=== PATIENT | male | born 1970 | race Caucasian/White ===

== ENCOUNTER 2017-02-01 14:38 | Inpatient (IN) | payer OTHER ==
--- NOTE | 2017-02-01 15:41 | EDM.PDOCBH ---
<Carroll Reed - Last Filed: 02/01/17 19:32> ED HPI GENERAL MEDICAL PROBLEM - General Chief Complaint: Behavioral/Psych Stated Complaint: [facility] Time Seen by Provider: 02/01/17 14:46 Source of Information: Reports: Patient, RN Notes Reviewed History Limitations: Reports: Other (The patient was initially hostile, but softened over time) - History of Present Illness INITIAL COMMENTS - FREE TEXT/NARRATIVE: Report from EMS is that a friend of the patient apparently called 911 because the patient has been expressing some sort of suicidal ideation. The police then called EMS. The patient acknowledges that he has been feeling depressed and suicidal for the past few days. He stated to me "I just figured I'd just shoot myself in the fucking head". He states that he DOES NOT have access to a firearm, but that if he did, he wouldn't be here. The patient denies prior suicide attempts or prior psychiatric hospitalizations, however, while he denies having any psychiatric diagnoses, he acknowledges that he is being treated for depression, anxiety, and PTSD by the [facility]. He acknowledges that he is generally noncompliant with all of his medications, and has not taken any of his medications at all for the past 2 weeks. He added that when he does not take his medications, things often start to go badly for him. He states that he has been drinking approximately 1 L of whiskey per day for the past 2 weeks, but expressly denies that he is drinking in order to try to kill himself. He states that he started drinking when he was 11 years old. He states that he has been to inpatient alcohol treatment 4 or 5 times, most recently April 2016 through August 2016 at the [facility]. He states that while there, he was also treated for PTSD. He states, however, that he does not go to any outpatient counseling, and never has. He states that he injected about 1/2 g heroin this past Wednesday night, 01/29/2017 , but states that this is only about the fourth time since 2001 that he has ever done heroin. He states that he smokes marijuana recreationally, most recently about 2 weeks ago. He states that his drug of choice is injecting methamphetamine, that he started injecting it in the 1980s, but that the last time he injected it was about 10 years ago. He states that he has prescriptions for Ativan and Xanax. - Related Data Allergies Allergy/AdvReac Type Severity Reaction Status Date / Time No Known Allergies Allergy Verified 02/01/17 14:54 Past Medical History HEENT History: Reports: Impaired Vision Other HEENT History: wears contacts. Cardiovascular History: Reports: High Cholesterol, Hypertension Gastrointestinal History: Reports: GERD Genitourinary History: Reports: Renal Calculus Neurological History: Reports: Head Trauma ([place] war) Psychiatric History: Reports: Addiction, Anxiety, Depression - Infectious Disease History Infectious Disease History: Reports: Chicken Pox - Past Surgical History HEENT Surgical History: Reports: Tonsillectomy GI Surgical History: Reports: Appendectomy Male Surgical History: Reports: Lithotripsy ([facility]), Ureteral Stent Social & Family History - Tobacco Use Smoking Status *Q: Never Smoker Second Hand Smoke Exposure: No - Caffeine Use Caffeine Use: Reports: Coffee - Alcohol Use Alcohol Use History: Yes Days Per Week of Alcohol Use: 7 Number of Drinks Per Day: 23 Total Drinks Per Week: 161 Total Drinks Per Week Comment: States started drinking at 11 years old Alcohol Use Frequency: Binges - Recreational Drug Use Recreational Drug Use: Yes Drug Use in Last 12 Months: Yes Recreational Drug Type: Reports: Heroin (rarely, but last use 01/29/17), Marijuana/Hashish (recreationally, last November 2016), Methamphetamine (last around 2006) - Living Situation & Occupation Living situation: Reports: , Alone (in a camper) Occupation: Unemployed ED ROS GENERAL - Review of Systems Review Of Systems: See Below Constitutional: Reports: No Symptoms HEENT: Reports: No Symptoms Respiratory: Reports: No Symptoms Cardiovascular: Reports: No Symptoms Endocrine: Reports: No Symptoms GI/Abdominal: Reports: No Symptoms : Reports: No Symptoms Musculoskeletal: Reports: No Symptoms Skin: Reports: No Symptoms Neurological: Reports: No Symptoms Psychiatric: Reports: Depression (as per the HPI), Suicidal Ideation (as per the HPI) Hematologic/Lymphatic: Reports: No Symptoms Immunologic: Reports: No Symptoms ED EXAM, BEHAVIORAL HEALTH - Physical Exam Exam: See Below Exam Limited By: Intoxication (Smells of alcohol, but is cooperative) General Appearance: Alert, WD/WN, No Apparent Distress Eye Exam: Bilateral Eye: Normal Inspection Ears: Normal External Exam, Hearing Grossly Normal Nose: Normal Inspection, No Blood Throat/Mouth: Normal Inspection, Normal Lips, Normal Voice, No Airway Compromise Head: Atraumatic, Normocephalic Neck: Normal Inspection, Full Range of Motion Respiratory/Chest: No Respiratory Distress, Lungs Clear, Normal Breath Sounds, No Accessory Muscle Use Cardiovascular: Normal Peripheral Pulses, Regular Rate, Rhythm, No Gallop, No JVD, No Murmur, No Rub GI/Abdominal: Normal Bowel Sounds, Soft, Non-Tender, No Organomegaly, No Distention, No Abnormal Bruit, No Mass (Male) Exam: Deferred Rectal (Males) Exam: Deferred Back Exam: Normal Inspection, Full Range of Motion, NT Extremities: Normal Inspection, Normal Range of Motion, No Pedal Edema, Normal Capillary Refill Neurological: No Motor/Sensory Deficits, Oriented x 3 Psychiatric: Other (Initially hostile, stating that he didn't know why he was here, and suspicious, asking why I was asking him questions. He would yell his answers as if to indicate that he was done answering questions, but would then answer the next question. He softened over time, when he saw that I was not a threat, and began answering questions more amicably. He was cooperative with his physical exam.) Skin Exam: Warm, Dry, Intact, Normal color, No rash EKG INTERPRETATION EKG Date: 02/01/17 Time: 15:51 Rhythm: NSR Rate (Beats/Min): 92 [place]: Normal P-Wave: Present QRS: Normal ST-T: Normal QT: Normal Comparison: NA - No Prior EKG COURSE, BEHAVIORAL HEALTH COMP - Course Vital Signs: Last Vital Signs Temp 36.7 C 02/03/17 12:00 Pulse 78 02/03/17 04:00 Resp 22 H 02/03/17 12:00 BP 150/91 H 02/03/17 12:47 Pulse Ox 94 L 02/03/17 12:00 Orders, Labs, Meds: Medication Orders Acetaminophen (Tylenol) 650 mg PO Q4H PRN PRN Reason: Pain (Mild 1-3)/fever Albuterol/Ipratropium (Duoneb 3.0-0.5 Mg/3 Ml) 3 ml NEB Q4H PRN PRN Reason: Shortness Of Breath/wheezing Chlordiazepoxide HCl (Librium) 50 mg PO BID JAMEL Last Admin: 02/03/17 08:52 Dose: 50 mg Admin: 02/02/17 20:29 Dose: 50 mg Admin: 02/02/17 17:17 Dose: 50 mg Clonidine HCl (Catapres) 0.2 mg PO Q8H JAMEL Docusate Sodium (Colace) 100 mg PO BID PRN PRN Reason: Constipation Enoxaparin Sodium (Lovenox) 40 mg SUBCUT DAILY [facility] Last Admin: 02/03/17 08:59 Dose: 40 mg Admin: 02/02/17 12:27 Dose: 40 mg Folic Acid (Folic Acid) 1 mg PO DAILY [facility] Stop: 02/05/17 09:01 Last Admin: 02/03/17 08:52 Dose: 1 mg Haloperidol Lactate (Haldol) 2 mg IM Q4H PRN PRN Reason: Agitation Hydralazine HCl (Apresoline) 20 mg IVPUSH Q6H PRN PRN Reason: Hypertension Last Admin: 02/03/17 12:30 Dose: 20 mg Magnesium Sulfate 2 gm/ Premix 50 mls @ 25 mls/hr IV ONETIME ONE Stop: 02/03/17 14:29 Last Admin: 02/03/17 12:54 Dose: 25 mls/hr Lorazepam (Ativan) 0 mg PO ASDIRECTED JAMEL PRN Reason: Protocol Last Admin: 02/03/17 11:52 Dose: 2 mg Admin: 02/03/17 08:53 Dose: 1 mg Admin: 02/02/17 14:28 Dose: 1 mg Lorazepam (Ativan) 0 mg IV ASDIRECTED JAMEL PRN Reason: Protocol Last Admin: 02/03/17 09:59 Dose: 2 mg Admin: 02/02/17 18:51 Dose: 1 mg Admin: 02/02/17 12:52 Dose: 1 mg Metoprolol Tartrate (Lopressor) 25 mg PO Q6H PRN PRN Reason: See Label Comment Miscellaneous Information (Remove Patch) 0 ea TRDERM DAILY [facility] Last Admin: 02/03/17 08:59 Dose: Nicotine (Habitrol) 21 mg TRDERM DAILY [facility] Last Admin: 02/03/17 08:53 Dose: Admin: 02/02/17 12:27 Dose: Not Given Ondansetron HCl (Zofran Odt) 4 mg PO Q6H PRN PRN Reason: nausea, able to take PO Last Admin: 02/02/17 15:17 Dose: 4 mg Ondansetron HCl (Zofran) 4 mg IV Q6H PRN PRN Reason: Nausea/Vomiting Last Admin: 02/03/17 11:51 Dose: 4 mg Polyethylene Glycol (Miralax) 17 gm PO DAILY PRN PRN Reason: Constipation Thiamine HCl (Vitamin B-1) 100 mg PO DAILY JAMEL Last Admin: 02/03/17 08:52 Dose: 100 mg Laboratory Tests 02/01/17 02/01/17 02/01/17 Range/Units 14:45 14:45 14:45 WBC 12.55 H (4.23-9.07) K/mm3 RBC 5.92 (4.63-6.08) M/mm3 Hgb 17.1 (13.7-17.5) gm/L Hct 50.4 (40.1-51.0) % MCV 85.1 (79.0-92.2) fl MCH 28.9 (25.7-32.2) pg MCHC 33.9 (32.2-35.5) g/dl RDW Std Deviation 42.7 (35.1-43.9) fL Plt Count 350 H (163-337) K/mm3 MPV 11.0 (9.4-12.3) fl Neutrophils % (Manual) 57 (40-60) % Band Neutrophils % 0 (0-10) % Lymphocytes % (Manual) 41 H (20-40) % Atypical Lymphs % 0 % Monocytes % (Manual) 2 (2-10) % Eosinophils % (Manual) 0 L (0.8-7.0) % Basophils % (Manual) 0 L (0.2-1.2) Platelet Estimate Adequate RBC Morph Comment Normal Sodium 141 (136-145) mEq/L Potassium 3.5 (3.5-5.1) mEq/L Chloride 103 (98-107) mEq/L Carbon Dioxide 22 (21-32) mEq/L Anion Gap 19.5 H (5-15) BUN 17 (7-18) mg/dL Creatinine 1.1 (0.7-1.3) mg/dL Est Cr Clr Drug Dosing 80.32 mL/min Estimated GFR (MDRD) > 60 (>60) mL/min BUN/Creatinine Ratio 15.5 (14-18) Glucose 131 H (74-106) mg/dL Calcium 8.7 (8.5-10.1) mg/dL Total Bilirubin 0.3 (0.2-1.0) mg/dL AST 39 H (15-37) U/L ALT 68 H (16-63) U/L Alkaline Phosphatase 88 (46-116) U/L Total Protein 8.1 (6.4-8.2) g/dl Albumin 3.9 (3.4-5.0) g/dl Globulin 4.2 gm/dL Albumin/Globulin Ratio 0.9 L (1-2) TSH 3rd Generation 1.646 (0.358-3.74) uIU/mL Salicylates 2.1 L (2.8-20) mg/dL Urine Opiates Screen (NEGATIVE) Ur Buprenorphine Scrn (NEGATIVE) Ur Oxycodone Screen (NEGATIVE) Urine Methadone Screen (NEGATIVE) Ur Propoxyphene Screen (NEGATIVE) Acetaminophen 0 L (10-30) ug/mL Ur Barbiturates Screen (NEGATIVE) Ur Tricyclics Screen (NEGATIVE) Ur Phencyclidine Scrn (NEGATIVE) Ur Amphetamine Screen (NEGATIVE) U Methamphetamines Scrn (NEGATIVE) U Benzodiazepines Scrn (NEGATIVE) U Cocaine Metab Screen (NEGATIVE) U Marijuana (THC) Screen (NEGATIVE) Ethyl Alcohol 0.30 (0.00) gm% 02/01/17 Range/Units 15:10 WBC (4.23-9.07) K/mm3 RBC (4.63-6.08) M/mm3 Hgb (13.7-17.5) gm/L Hct (40.1-51.0) % MCV (79.0-92.2) fl MCH (25.7-32.2) pg MCHC (32.2-35.5) g/dl RDW Std Deviation (35.1-43.9) fL Plt Count (163-337) K/mm3 MPV (9.4-12.3) fl Neutrophils % (Manual) (40-60) % Band Neutrophils % (0-10) % Lymphocytes % (Manual) (20-40) % Atypical Lymphs % % Monocytes % (Manual) (2-10) % Eosinophils % (Manual) (0.8-7.0) % Basophils % (Manual) (0.2-1.2) Platelet Estimate RBC Morph Comment Sodium (136-145) mEq/L Potassium (3.5-5.1) mEq/L Chloride (98-107) mEq/L Carbon Dioxide (21-32) mEq/L Anion Gap (5-15) BUN (7-18) mg/dL Creatinine (0.7-1.3) mg/dL Est Cr Clr Drug Dosing mL/min Estimated GFR (MDRD) (>60) mL/min BUN/Creatinine Ratio (14-18) Glucose (74-106) mg/dL Calcium (8.5-10.1) mg/dL Total Bilirubin (0.2-1.0) mg/dL AST (15-37) U/L ALT (16-63) U/L Alkaline Phosphatase (46-116) U/L Total Protein (6.4-8.2) g/dl Albumin (3.4-5.0) g/dl Globulin gm/dL Albumin/Globulin Ratio (1-2) TSH 3rd Generation (0.358-3.74) uIU/mL Salicylates (2.8-20) mg/dL Urine Opiates Screen Negative (NEGATIVE) Ur Buprenorphine Scrn Negative (NEGATIVE) Ur Oxycodone Screen Negative (NEGATIVE) Urine Methadone Screen Negative (NEGATIVE) Ur Propoxyphene Screen Negative (NEGATIVE) Acetaminophen (10-30) ug/mL Ur Barbiturates Screen Negative (NEGATIVE) Ur Tricyclics Screen Negative (NEGATIVE) Ur Phencyclidine Scrn Negative (NEGATIVE) Ur Amphetamine Screen Negative (NEGATIVE) U Methamphetamines Scrn Negative (NEGATIVE) U Benzodiazepines Scrn Negative (NEGATIVE) U Cocaine Metab Screen Negative (NEGATIVE) U Marijuana (THC) Screen Negative (NEGATIVE) Ethyl Alcohol (0.00) gm% Medications Generic Name Dose Route Start Last Admin Trade Name Freq PRN Reason Stop Dose Admin Acetaminophen 650 mg 02/02/17 10:16 Tylenol PO Q4H PRN Pain (Mild 1-3)/fever Albuterol/Ipratropium 3 ml 02/02/17 10:16 Duoneb 3.0-0.5 Mg/3 Ml NEB Q4H PRN Shortness Of Breath/wheezing Chlordiazepoxide HCl 50 mg 02/02/17 17:01 02/03/17 08:52 Librium PO 50 mg BID JAMEL Administration Clonidine HCl 0.2 mg 02/03/17 15:00 Catapres PO Q8H JAMEL Docusate Sodium 100 mg 02/02/17 10:16 Colace PO BID PRN Constipation Enoxaparin Sodium 40 mg 02/02/17 10:30 02/03/17 08:59 Lovenox SUBCUT 40 mg DAILY JAMEL Administration Folic Acid 1 mg 02/03/17 09:00 02/03/17 08:52 Folic Acid PO 02/05/17 09:01 1 mg DAILY JAMEL Administration Haloperidol Lactate 2 mg 02/02/17 10:16 Haldol IM Q4H PRN Agitation Hydralazine HCl 20 mg 02/03/17 12:14 02/03/17 12:30 Apresoline IVPUSH 20 mg Q6H PRN Administration Hypertension Magnesium Sulfate 2 gm/ Premix 50 mls @ 25 mls/hr 02/03/17 12:30 02/03/17 12: 54 IV 02/03/17 14:29 25 mls/hr ONETIME ONE Administration Lorazepam 0 mg 02/02/17 10:30 02/03/17 11:52 Ativan PO 2 mg ASDIRECTED JAMEL Administration Protocol Lorazepam 0 mg 02/02/17 10:30 02/03/17 09:59 Ativan IV 2 mg ASDIRECTED JAMEL Administration Protocol Metoprolol Tartrate 25 mg 02/02/17 10:16 Lopressor PO Q6H PRN See Label Comment Miscellaneous Information 0 ea 02/03/17 09:00 02/03/17 08:59 Remove Patch TRDERM Not Given DAILY JAMEL Nicotine 21 mg 02/02/17 11:30 02/03/17 08:53 Habitrol TRDERM Not Given DAILY JAMEL Ondansetron HCl 4 mg 02/02/17 10:16 02/02/17 15:17 Zofran Odt PO 4 mg Q6H PRN Administration nausea, able to take PO Ondansetron HCl 4 mg 02/02/17 10:16 02/03/17 11:51 Zofran IV 4 mg Q6H PRN Administration Nausea/Vomiting Polyethylene Glycol 17 gm 02/02/17 10:16 Miralax PO DAILY PRN Constipation Thiamine HCl 100 mg 02/03/17 09:00 02/03/17 08:52 Vitamin B-1 PO 100 mg DAILY JAMEL Administration Discontinued Medications Generic Name Dose Route Start Last Admin Trade Name Freq PRN Reason Stop Dose Admin Chlordiazepoxide HCl 0 mg 02/02/17 10:30 Librium PO ASDIRECTED JAMEL Protocol Clonidine HCl 0.1 mg 02/02/17 10:16 02/03/17 08:58 Catapres PO 0.1 mg Q4H PRN Administration Agitation Clonidine HCl 0.1 mg 02/03/17 16:00 Catapres PO Q4H JAMEL Clonidine HCl 0.1 mg 02/03/17 15:00 Catapres PO Q8H JAMEL Diphenhydramine HCl 25 mg 02/02/17 02:23 02/02/17 02:32 Benadryl IVPUSH 02/02/17 02:24 25 mg ONETIME ONE Administration Hydralazine HCl 10 mg 02/02/17 12:19 02/02/17 15:54 Apresoline IVPUSH 10 mg Q2H PRN Administration Hypertension Hydralazine HCl 20 mg 02/03/17 12:04 Apresoline IVPUSH Q2H PRN Hypertension Sodium Chloride 1,000 mls @ 150 mls/hr 02/01/17 15:45 02/01/17 15:57 Normal Saline IV 150 mls/hr ASDIRECTED JAMEL Administration Dextrose/Sodium Chloride 1,000 mls @ 125 mls/hr 02/01/17 21:30 02/02/17 02:31 Dextrose 5%-Normal Saline IV 125 mls/hr ASDIRECTED JAMEL Administration Sodium Chloride 1,000 mls @ 75 mls/hr 02/02/17 12:30 02/02/17 12:53 Sodium Chloride 0.45% IV 75 mls/hr ASDIRECTED JAMEL Administration Lorazepam 2 mg 02/01/17 21:00 02/01/17 21:05 Ativan IVPUSH 02/01/17 21:01 2 mg ONETIME ONE Administration Lorazepam 2 mg 02/02/17 02:23 02/02/17 02:32 Ativan IVPUSH 02/02/17 02:24 2 mg ONETIME ONE Administration Lorazepam 1 mg 02/02/17 06:14 02/02/17 06:20 Ativan IVPUSH 02/02/17 06:15 1 mg ONETIME ONE Administration Lorazepam 1 mg 02/02/17 09:25 02/02/17 09:30 Ativan IVPUSH 02/02/17 09:26 1 mg ONETIME ONE Administration Lorazepam 2 mg 02/02/17 20:20 02/02/17 20:29 Ativan PO 02/02/17 20:21 2 mg ONETIME ONE Administration Lorazepam 2 mg 02/02/17 21:48 02/02/17 22:05 Ativan PO 02/02/17 21:49 2 mg ONETIME ONE Administration Medical Clearance: 02/01/17 17:16 The patient's medical workup is remarkable for a WBC count mildly elevated at 12.55, but with no bandemia, consistent with demargination, not infection. His anion gap is elevated at 19.5, but his bicarbonate is normal, therefore he does not actually have an acidosis. His blood glucose is mildly elevated 131, consistent with prediabetes. His urine drug screen is negative, however, his alcohol level is significantly elevated at 0.30. He will need to remain in the emergency department until sober, at which time he can be reevaluated to see if he is still expressing suicidal ideation. If so at that time, he would need to be psychiatrically hospitalized, however, if he denies suicidal ideation at that time, then I don't believe he would qualify for psychiatric admission, as we would not have an adequate indication to involuntarily commit him. 02/01/17 19:[address] Lee, and care of the patient turned over to him at this time, for change of shift. Departure - Departure Disposition: Admitted As Inpatient 65 Clinical Impression: Depressive disorder, Alcohol abuse, Suicidal ideation Alcohol withdrawal Qualifiers: Complication of substance-induced condition: uncomplicated Qualified Code(s): F10.230 - Alcohol dependence with withdrawal, uncomplicated - Discharge Information <Kemal Gonsalez - Last Filed: 02/02/17 09:52> COURSE, BEHAVIORAL HEALTH COMP - Course Medical Clearance: 02/02/17 09:[address] Lee who was taking over for Dr Reed. The patient is still depressed and suicidal. He is wanting help with stopping drinking. I called the [facility] in [place] and talked with the care transition mgr psychiatrist. He had a psych bed but not a medical bed for detox. He asked it we could admit here and detox him and in a few days they may be able to take him. I called Dr Rosales and he agreed to the admission. The patient was feeling anxious again so I ordered some ativan 1mg IV. Departure - Departure Time of Disposition: 09:55 <Zen Lee - Last Filed: 02/03/17 14:10> ED HPI GENERAL MEDICAL PROBLEM headache Pain Score (Numeric/FACES): 2 COURSE, BEHAVIORAL HEALTH COMP - Course Medical Clearance: 02/01/17 21:01 patient reports that he is starting to feel anxious and experiencing some withdrawal symptoms. He usually is on Ativan daily. Plan it's nearly nighttime and therefore I will give him 2 mg of Ativan IV so that he can get adequate sleep. Patient relays to the nursing staff that he has had seizures upon alcohol withdrawal in the past. 02/01/17 21:31 continues to have a sinus tachycardia of 102-1 12/m. Will therefore continue IV fluids overnight with D5 normal saline at 125 mils per hour. 02/01/17 23:17 patient appears to be resting comfortably. Heart rate is improved into the 90s. Sats 95% on room air. BP is 151/90. 02/02/17 02:24 patient is alert and oriented. He is is requesting further medication to relieve his jitters as he feels he is going through alcohol withdrawal. He did sleep for partially 3 hours but is now wide awake and has been up to the bathroom. Still remains mildly tachycardic at 10 6/m. Will repeat 2 mg of Ativan IV bolus with Benadryl 25 mg IV for sedation as well. 02/02/17 06:15 patient is alert and oriented and for the most part sober at this time. We therefore had a kwaku conversation about his disposition and he wishes to pursue treatment for alcohol abuse and for his depression. He's been drinking whiskey heavily for over 2 and half to 3 weeks. He is exhibiting withdrawal symptoms and requiring Ativan every 3-4 hours to control his anxiety and jitters. Therefore we will try and make arrangements through the [facility] system to have him admitted likely in [place] if a bed is available. He has family in [place] that he states could come and pick him up and help transport him to [place]. I will have forensic social worker work on disposition later this morning. Patient is requesting more medication at this time for feeling of withdrawl symptoms. and therefore he will be given Ativan 1 mg IV. 02/03/17 07:25: Due to problems I was having trying to get a hold of anybody in [facility] Dr. Gonsalez accepted care and will try to arrange a bed for him for substance abuse and detox and psychiatric evaluation and treatment.
[2017-02-01] MEDS ORDERED: Sodium Chloride 0.9% 1,000 ML IV SCH (15:45)
[2017-02-01] MEDS ORDERED: Albuterol 0.083% 2.5 MG/3 ML Neb Soln NEB ONE (16:03)
[2017-02-01 16:13] LABS: ACETAMINOPHEN 0 ug/mL (10-30)
[2017-02-01] MEDS ORDERED: LORazepam 2 MG/ML MDV IVPUSH ONE (21:00)
[2017-02-01] MEDS ORDERED: Dextrose 5%-0.9% NaCl 1,000 ML IV SCH (21:30)
[2017-02-02] MEDS ORDERED: diphenhydrAMINE 50 MG/ML SDV IVPUSH ONE (02:23)
[2017-02-02] MEDS ORDERED: LORazepam 2 MG/ML MDV IVPUSH ONE ×3 (02:23→09:25)
[2017-02-02] MEDS ORDERED: Ondansetron 4 MG Tab.DIS PO PRN (10:16)
[2017-02-02] MEDS ORDERED: Albuterol/Ipratropium 3.0-0.5 MG/3 ML Neb Soln NEB PRN (10:16)
[2017-02-02] MEDS ORDERED: Haloperidol Lactate 5 MG/ML SDV IM PRN (10:16)
[2017-02-02] MEDS ORDERED: cloNIDine 0.1 MG Tab PO PRN (10:16)
[2017-02-02] MEDS ORDERED: Acetaminophen 325 MG Tab PO PRN (10:16)
[2017-02-02] MEDS ORDERED: Docusate Sodium 100 MG Cap PO PRN (10:16)
[2017-02-02] MEDS ORDERED: Metoprolol Tartrate 25 MG Tab PO PRN (10:16)
[2017-02-02] MEDS ORDERED: Polyethylene Glycol 3350 Powder 17 GM Packet PO PRN (10:16)
[2017-02-02] MEDS ORDERED: Ondansetron 4 MG/2 ML SDV IV PRN (10:16)
[2017-02-02] MEDS ORDERED: chlordiazePOXIDE 25 MG Cap PO SCH (10:30)
--- NOTE | 2017-02-02 10:48 | PCM.HP ---
H&P History of Present Illness - General Date of Service: 02/02/17 Admit Problem/Dx: Admission Diagnosis/Problem Admission Diagnosis/Problem Alcohol withdrawal syndrome Source of Information: Patient, Provider (Emergency room physician's records) History Limitations: Reports: No Limitations - History of Present Illness Initial Comments - Free Text/Narative: Patient is a 46-year-old man with past medical history of anxiety disorder, depressive disorder, posttraumatic stress disorder, a who was brought into the emergency room by EMS after his friend called the police to report that patient was threatening to shoot himself in the head. I interviewed the patient but most of the history was obtained from the emergency room physician' s record as he spoke extensively with the patient. According to the records, patient follows at the [facility] where he is being treated for his psychiatric issues. He does have prescriptions for medications which he admits he does not take. He admits to drinking a liter of whiskey daily and has been drinking since he was 11 years old. He was said to be aggressive initially but has since calmed down. At the emergency room, patient received several doses of Ativan as he was reported to be having withdrawal symptoms. He reports that to have tremors, sweating profusely, anxiety disorder as well as chest pains. The pain is located in the left chest wall area, 7/10 in intensity, described as sharp, intermittent, lasting 15 seconds each time without any radiations. Attempts were made to transfer patient to the [facility] but the psychiatrist admitted that there was a psychiatric bed available but they did not have any medical bed for detox at this time. The plan is to detox the patient in this facility and then transfer him to the [facility] for rehabilitation and psychiatric evaluation and treatment. - Related Data Allergies/Adverse Reactions: Allergies Allergy/AdvReac Type Severity Reaction Status Date / Time No Known Allergies Allergy Verified 02/01/17 14:54 Past Medical History HEENT History: Reports: Impaired Vision Other HEENT History: wears contacts. Cardiovascular History: Reports: High Cholesterol, Hypertension Gastrointestinal History: Reports: GERD Genitourinary History: Reports: Renal Calculus Neurological History: Reports: Head Trauma ([place] war) Other Neuro History: traumatic brain injury from [place]. Psychiatric History: Reports: Addiction, Anxiety, Depression - Infectious Disease History Infectious Disease History: Reports: Chicken Pox - Past Surgical History HEENT Surgical History: Reports: Tonsillectomy GI Surgical History: Reports: Appendectomy Male Surgical History: Reports: Lithotripsy (ESWL), Ureteral Stent Social & Family History - Tobacco Use Smoking Status *Q: Never Smoker Second Hand Smoke Exposure: No - Caffeine Use Caffeine Use: Reports: Coffee - Alcohol Use Days Per Week of Alcohol Use: 7 Number of Drinks Per Day: 23 Total Drinks Per Week: 161 - Recreational Drug Use Recreational Drug Use: Yes Drug Use in Last 12 Months: Yes Recreational Drug Type: Reports: Heroin (rarely, but last use 01/29/17), Marijuana/Hashish (recreationally, last November 2016), Methamphetamine (last around 2006) - Living Situation & Occupation Living situation: Reports: , Alone (in a camper) Occupation: Unemployed H&P Review of Systems - Review of Systems: Review Of Systems: See Below General: Reports: Other (Tremors) HEENT: Reports: No Symptoms Pulmonary: Reports: No Symptoms Cardiovascular: Reports: Chest Pain Gastrointestinal: Reports: No Symptoms Genitourinary: Reports: No Symptoms Musculoskeletal: Reports: No Symptoms Skin: Reports: No Symptoms Psychiatric: Reports: Anxiety, Suicidal Ideation Neurological: Reports: Tremors Hematologic/Lymphatic: Reports: No Symptoms Immunologic: Reports: No Symptoms Exam - Exam Exam: See Below - Vital Signs Vital Signs: Last Vital Signs Temp 97.6 F 02/01/17 14:44 Pulse 108 H 02/01/17 14:44 Resp 15 02/01/17 14:44 BP 173/119 H 02/01/17 14:44 Pulse Ox 96 02/01/17 14:44 Weight: 108.862 kg - Exam General: Alert, Oriented, Cooperative HEENT: PERRLA, Hearing Intact, Mucosa Moist & [place], Nares Patent, Normal Nasal Septum, Posterior Pharynx Clear, Conjunctiva Clear, EOMI, EACs Clear, TMs Clear Neck: Supple, Trachea Midline, 2 Lungs: Clear to Auscultation, Normal Respiratory Effort Cardiovascular: Regular Rate, Regular Rhythm GI/Abdominal Exam: Normal Bowel Sounds, Soft, Non-Tender, No Organomegaly, No Distention, No Abnormal Bruit, No Mass, Pelvis Stable (Male) Exam: Deferred Rectal (Males) Exam: Deferred Back Exam: Normal Inspection, Full Range of Motion, NT Extremities: Normal Inspection, Normal Range of Motion, Non-Tender, No Pedal Edema, Normal Capillary Refill Peripheral Pulses: 2+: Carotid (L), Carotid (R), Brachial (L), Brachial (R), Radial (L), Radial (R), Femoral (L), Femoral (R), Popliteal (L), Popliteal (R), Posterior Tibial (L), Posterior Tibial (R), Dorsalis Pedis (L), Dorsalis Pedis ( R) Skin: Warm, Dry, Intact Neurological: Cranial Nerves Intact, Reflexes Equal Bilateral Neuro Extensive - Mental Status: Alert, Oriented x3, Normal Mood/Affect, Normal Cognition Neuro Extensive - Motor, Sensory, Reflexes: CN II-XII Intact, Normal Gait, Normal Reflexes DTR: 2+: Bicep (L), Bicep (R), Tricep (L), Tricep (R), Patella (L), Patella (R) , Achilles (L), Achilles (R) Psychiatric: Alert, Normal Affect, Normal Mood, Anxious, Depressed, Suicidal Ideation, Withdrawal Symptoms - Patient Data Lab Results Last 24 hrs: Laboratory Results - last 24 hr 02/01/17 02/01/17 02/01/17 Range/Units 14:45 14:45 14:45 WBC 12.55 H (4.23-9.07) K/mm3 RBC 5.92 (4.63-6.08) M/mm3 Hgb 17.1 (13.7-17.5) gm/L Hct 50.4 (40.1-51.0) % MCV 85.1 (79.0-92.2) fl MCH 28.9 (25.7-32.2) pg MCHC 33.9 (32.2-35.5) g/dl RDW Std Deviation 42.7 (35.1-43.9) fL Plt Count 350 H (163-337) K/mm3 MPV 11.0 (9.4-12.3) fl Neutrophils % (Manual) 57 (40-60) % Band Neutrophils % 0 (0-10) % Lymphocytes % (Manual) 41 H (20-40) % Atypical Lymphs % 0 % Monocytes % (Manual) 2 (2-10) % Eosinophils % (Manual) 0 L (0.8-7.0) % Basophils % (Manual) 0 L (0.2-1.2) Platelet Estimate Adequate RBC Morph Comment Normal Sodium 141 (136-145) mEq/L Potassium 3.5 (3.5-5.1) mEq/L Chloride 103 (98-107) mEq/L Carbon Dioxide 22 (21-32) mEq/L Anion Gap 19.5 H (5-15) BUN 17 (7-18) mg/dL Creatinine 1.1 (0.7-1.3) mg/dL Est Cr Clr Drug Dosing 80.32 mL/min Estimated GFR (MDRD) > 60 (>60) mL/min BUN/Creatinine Ratio 15.5 (14-18) Glucose 131 H (74-106) mg/dL Calcium 8.7 (8.5-10.1) mg/dL Total Bilirubin 0.3 (0.2-1.0) mg/dL AST 39 H (15-37) U/L ALT 68 H (16-63) U/L Alkaline Phosphatase 88 (46-116) U/L Total Protein 8.1 (6.4-8.2) g/dl Albumin 3.9 (3.4-5.0) g/dl Globulin 4.2 gm/dL Albumin/Globulin Ratio 0.9 L (1-2) TSH 3rd Generation 1.646 (0.358-3.74) uIU/mL Salicylates 2.1 L (2.8-20) mg/dL Urine Opiates Screen (NEGATIVE) Ur Buprenorphine Scrn (NEGATIVE) Ur Oxycodone Screen (NEGATIVE) Urine Methadone Screen (NEGATIVE) Ur Propoxyphene Screen (NEGATIVE) Acetaminophen 0 L (10-30) ug/mL Ur Barbiturates Screen (NEGATIVE) Ur Tricyclics Screen (NEGATIVE) Ur Phencyclidine Scrn (NEGATIVE) Ur Amphetamine Screen (NEGATIVE) U Methamphetamines Scrn (NEGATIVE) U Benzodiazepines Scrn (NEGATIVE) U Cocaine Metab Screen (NEGATIVE) U Marijuana (THC) Screen (NEGATIVE) Ethyl Alcohol 0.30 (0.00) gm% 02/01/17 Range/Units 15:10 WBC (4.23-9.07) K/mm3 RBC (4.63-6.08) M/mm3 Hgb (13.7-17.5) gm/L Hct (40.1-51.0) % MCV (79.0-92.2) fl MCH (25.7-32.2) pg MCHC (32.2-35.5) g/dl RDW Std Deviation (35.1-43.9) fL Plt Count (163-337) K/mm3 MPV (9.4-12.3) fl Neutrophils % (Manual) (40-60) % Band Neutrophils % (0-10) % Lymphocytes % (Manual) (20-40) % Atypical Lymphs % % Monocytes % (Manual) (2-10) % Eosinophils % (Manual) (0.8-7.0) % Basophils % (Manual) (0.2-1.2) Platelet Estimate RBC Morph Comment Sodium (136-145) mEq/L Potassium (3.5-5.1) mEq/L Chloride (98-107) mEq/L Carbon Dioxide (21-32) mEq/L Anion Gap (5-15) BUN (7-18) mg/dL Creatinine (0.7-1.3) mg/dL Est Cr Clr Drug Dosing mL/min Estimated GFR (MDRD) (>60) mL/min BUN/Creatinine Ratio (14-18) Glucose (74-106) mg/dL Calcium (8.5-10.1) mg/dL Total Bilirubin (0.2-1.0) mg/dL AST (15-37) U/L ALT (16-63) U/L Alkaline Phosphatase (46-116) U/L Total Protein (6.4-8.2) g/dl Albumin (3.4-5.0) g/dl Globulin gm/dL Albumin/Globulin Ratio (1-2) TSH 3rd Generation (0.358-3.74) uIU/mL Salicylates (2.8-20) mg/dL Urine Opiates Screen Negative (NEGATIVE) Ur Buprenorphine Scrn Negative (NEGATIVE) Ur Oxycodone Screen Negative (NEGATIVE) Urine Methadone Screen Negative (NEGATIVE) Ur Propoxyphene Screen Negative (NEGATIVE) Acetaminophen (10-30) ug/mL Ur Barbiturates Screen Negative (NEGATIVE) Ur Tricyclics Screen Negative (NEGATIVE) Ur Phencyclidine Scrn Negative (NEGATIVE) Ur Amphetamine Screen Negative (NEGATIVE) U Methamphetamines Scrn Negative (NEGATIVE) U Benzodiazepines Scrn Negative (NEGATIVE) U Cocaine Metab Screen Negative (NEGATIVE) U Marijuana (THC) Screen Negative (NEGATIVE) Ethyl Alcohol (0.00) gm% Result Diagrams: 02/01/17 14:45 02/01/17 14:45 *Q Meaningful Use (ADM) - VTE *Q VTE Criteria *Q: - Stroke *Q Stroke Criteria *Q: - AMI *Q AMI Criteria *Q: - Problem List (1) Alcohol withdrawal syndrome SNOMED Code(s): 179387920 ICD Code: F10.239 - ALCOHOL DEPENDENCE WITH WITHDRAWAL, UNSPECIFIED Status : Acute Priority: High Current Visit: Yes Qualifiers: Complication of substance-induced condition: uncomplicated Qualified Code(s ): F10.230 - Alcohol dependence with withdrawal, uncomplicated (2) Suicidal ideation SNOMED Code(s): 4286512 ICD Code: R45.851 - SUICIDAL IDEATIONS Status: Acute Priority: High Current Visit: Yes (3) Posttraumatic stress disorder SNOMED Code(s): 75239479 ICD Code: F43.10 - POST-TRAUMATIC STRESS DISORDER, UNSPECIFIED Status: Chronic Priority: Medium Current Visit: Yes (4) Anxiety disorder SNOMED Code(s): 288227436 ICD Code: F41.9 - ANXIETY DISORDER, UNSPECIFIED Status: Chronic Priority : Medium Current Visit: Yes Qualifiers: Anxiety disorder type: generalized anxiety disorder Qualified Code(s): F41.1 - Generalized anxiety disorder (5) Alcohol abuse SNOMED Code(s): 18663605 ICD Code: F10.10 - ALCOHOL ABUSE, UNCOMPLICATED Status: Chronic Priority : High Current Visit: Yes (6) Depressive disorder SNOMED Code(s): 23627740 ICD Code: F32.9 - MAJOR DEPRESSIVE DISORDER, SINGLE EPISODE, UNSPECIFIED Status: Chronic Priority: Medium Current Visit: Yes Problem List Initiated/Reviewed/Updated: Yes Orders Last 24hrs: Active Orders 24 hr Category Date Time Status Patient Status [ADT] Routine ADT 02/02/17 10:16 Ordered CIWAA Assessment [RC] Q4H Care 02/02/17 10:16 Ordered EKG Documentation Completion [RC] ASDIRECTED Care 02/02/17 10:40 Active EKG Documentation Completion [RC] STAT Care 02/01/17 15:40 Active Notify Provider Consults [RC] ASDIRECTED Care 02/02/17 10:22 Ordered Notify Provider [RC] PRN Care 02/02/17 10:16 Ordered Oxygen Therapy [RC] PRN Care 02/02/17 10:16 Ordered RT Aerosol Therapy [RC] ASDIRECTED Care 02/01/17 16:03 Inactive RT Aerosol Therapy [RC] ASDIRECTED Care 02/02/17 10:22 Ordered Up With Assistance [RC] ASDIRECTED Care 02/02/17 10:16 Ordered VTE/DVT Education [RC] PER UNIT ROUTINE Care 02/02/17 10:16 Ordered Vital Signs [RC] Q4H Care 02/02/17 10:16 Ordered Consult to Physician [CONS] Routine Cons 02/02/17 10:16 Ordered Regular Diet [DIET] Diet 02/02/17 Lunch Ordered BASIC METABOLIC PANEL,BMP [CHEM] AM Lab 02/03/17 05:11 Ordered CBC WITH AUTO DIFF [HEME] AM Lab 02/03/17 05:11 Ordered GLYCOSYLATED HEMOGLOBIN,HGBA1C [CHEM] AM Lab 02/03/17 05:11 Ordered MAGNESIUM [CHEM] AM Lab 02/03/17 05:11 Ordered PHOSPHORUS [CHEM] AM Lab 02/03/17 05:11 Ordered TROPONIN I [CHEM] Stat Lab 02/02/17 10:39 Ordered Acetaminophen [Tylenol] Med 02/02/17 10:16 Ordered 650 mg PO Q4H PRN Albuterol/Ipratropium [DuoNeb 3.0-0.5 MG/3 ML] Med 02/02/17 10:16 Ordered 3 ml NEB Q4H PRN Dextrose 5%-0.9% NaCl [Dextrose 5%-Normal Saline] 1,000 Med 02/01/17 21:30 Active ml IV ASDIRECTED Docusate Sodium [Colace] Med 02/02/17 10:16 Ordered 100 mg PO BID PRN Enoxaparin [Lovenox] Med 02/02/17 10:30 Ordered 40 mg SUBCUT DAILY Folic Acid Med 02/03/17 09:00 Ordered 1 mg PO DAILY Haloperidol Lactate [Haldol] Med 02/02/17 10:16 Ordered 2 mg IM Q4H PRN LORazepam [Ativan] Med 02/02/17 10:30 Ordered See Protocol IV ASDIRECTED LORazepam [Ativan] Med 02/02/17 10:30 Ordered See Protocol PO ASDIRECTED Metoprolol Tartrate [Lopressor] Med 02/02/17 10:16 Ordered 25 mg PO Q6H PRN Nicotine [Habitrol] Med 02/02/17 10:30 Ordered 21 mg TRDERM DAILY Ondansetron [Zofran ODT] Med 02/02/17 10:16 Ordered 4 mg PO Q6H PRN Ondansetron [Zofran] Med 02/02/17 10:16 Ordered 4 mg IV Q6H PRN Polyethylene Glycol 3350 [MiraLAX] Med 02/02/17 10:16 Ordered 17 gm PO DAILY PRN Sodium Chloride 0.9% [Normal Saline] 1,000 ml Med 02/01/17 15:45 Active IV ASDIRECTED Thiamine [Vitamin B-1] Med 02/03/17 09:00 Ordered 100 mg PO DAILY chlordiazePOXIDE [Librium] Med 02/02/17 10:30 Ordered See Protocol PO ASDIRECTED cloNIDine [Catapres] Med 02/02/17 10:16 Ordered 0.1 mg PO Q4H PRN Seizure Precautions [OM.PC] Routine Oth 02/02/17 10:16 Ordered Resuscitation Status Routine Resus Stat 02/02/17 10:16 Ordered EKG 12 Lead [EK] Stat Ther 02/02/17 10:39 Ordered Medication Orders Acetaminophen (Tylenol) 650 mg PO Q4H PRN PRN Reason: Pain (Mild 1-3)/fever Albuterol/Ipratropium (Duoneb 3.0-0.5 Mg/3 Ml) 3 ml NEB Q4H PRN PRN Reason: Shortness Of Breath/wheezing Chlordiazepoxide HCl (Librium) 0 mg PO ASDIRECTED JAMEL PRN Reason: Protocol Clonidine HCl (Catapres) 0.1 mg PO Q4H PRN PRN Reason: Agitation Docusate Sodium (Colace) 100 mg PO BID PRN PRN Reason: Constipation Enoxaparin Sodium (Lovenox) 40 mg SUBCUT DAILY [facility] Folic Acid (Folic Acid) 1 mg PO DAILY [facility] Stop: 02/05/17 09:01 Haloperidol Lactate (Haldol) 2 mg IM Q4H PRN PRN Reason: Agitation Sodium Chloride (Normal Saline) 1,000 mls @ 150 mls/hr IV ASDIRECTED JAMEL Last Admin: 02/01/17 15:57 Dose: 150 mls/hr Dextrose/Sodium Chloride (Dextrose 5%-Normal Saline) 1,000 mls @ 125 mls/hr IV ASDIRECTED [facility] Last Admin: 02/02/17 02:31 Dose: 125 mls/hr Lorazepam (Ativan) 0 mg PO ASDIRECTED [facility] PRN Reason: Protocol Lorazepam (Ativan) 0 mg IV ASDIRECTED [facility] PRN Reason: Protocol Metoprolol Tartrate (Lopressor) 25 mg PO Q6H PRN PRN Reason: See Label Comment Nicotine (Habitrol) 21 mg TRDERM DAILY [facility] Ondansetron HCl (Zofran Odt) 4 mg PO Q6H PRN PRN Reason: nausea, able to take PO Ondansetron HCl (Zofran) 4 mg IV Q6H PRN PRN Reason: Nausea/Vomiting Polyethylene Glycol (Miralax) 17 gm PO DAILY PRN PRN Reason: Constipation Thiamine HCl (Vitamin B-1) 100 mg PO DAILY [facility] Assessment/Plan Comment:: Assessment: 1. Alcohol withdrawal syndrome. 2. Suicidal ideation. 3. Posttraumatic stress disorder. 4. Generalized anxiety disorder. 5. Depressive disorder. Plan: 1. Admit to ICU for detox. 2. Start CIWA protocol according to CIWA scale with IV and by mouth Ativan, Librium. 3. Volume resuscitation with IV 0.9% normal saline at 100 mL per hour. 4. Suicide, Seizure and fall precautions. One-to-one observation. 5. DVT prophylaxis with Lovenox. 6. Consult to Dr. Cortez for psychiatric evaluation. 7. Social service consult to arrange for transfer to the [facility] for psychiatric management once stable.
[2017-02-02] MEDS ORDERED: hydrALAZINE 20 MG/ML SDV IVPUSH PRN (12:19)
[2017-02-02] MEDS: Enoxaparin 40 MG/0.4 ML Syringe SUBCUT SCH (12:27)
[2017-02-02] MEDS: Nicotine 21 MG/24 Hr Patch TRDERM SCH (12:27)
[2017-02-02] MEDS ORDERED: Sodium Chloride 0.45% 1,000 ML IV SCH (12:30)
[2017-02-02] MEDS: LORazepam 2 MG/ML MDV IV SCH ×2 (12:52→18:51)
[2017-02-02] MEDS: LORazepam 1 MG Tab PO SCH (14:28)
[2017-02-02] MEDS: chlordiazePOXIDE 25 MG Cap PO SCH ×2 (17:17→20:29)
[2017-02-02] MEDS ORDERED: LORazepam 1 MG Tab PO ONE ×2 (20:20→21:48)
[2017-02-03] MEDS: chlordiazePOXIDE 25 MG Cap PO SCH ×2 (08:52→21:10)
[2017-02-03] MEDS: Thiamine 100 MG Tab PO SCH (08:52)
[2017-02-03] MEDS: Folic Acid 1 MG Tab PO SCH (08:52)
[2017-02-03] MEDS: Nicotine 21 MG/24 Hr Patch TRDERM SCH (08:53)
[2017-02-03] MEDS: LORazepam 1 MG Tab PO SCH ×4 (08:53→21:11)
[2017-02-03] MEDS: Enoxaparin 40 MG/0.4 ML Syringe SUBCUT SCH (08:59)
[2017-02-03] MEDS: LORazepam 2 MG/ML MDV IV SCH ×4 (09:59→19:14)
[2017-02-03] MEDS ORDERED: hydrALAZINE 20 MG/ML SDV IVPUSH PRN ×2 (12:04→12:14)
[2017-02-03] MEDS ORDERED: Magnesium Sulfate/Water 2 GM in Premix Bag 1 BAG IV ONE (12:30)
--- NOTE | 2017-02-03 13:16 | PCM.PN ---
- General Info Date of Service: 02/03/17 Functional Status: Reports: Tolerating Diet, Urinating - Review of Systems General: Reports: No Symptoms HEENT: Reports: No Symptoms Pulmonary: Reports: No Symptoms Cardiovascular: Reports: No Symptoms Gastrointestinal: Reports: No Symptoms Genitourinary: Reports: No Symptoms Musculoskeletal: Reports: No Symptoms Skin: Reports: No Symptoms Neurological: Reports: No Symptoms Psychiatric: Reports: Depression, Anxiety - Patient Data Vitals - Most Recent: Last Vital Signs Temp 36.7 C 02/03/17 12:00 Pulse 78 02/03/17 04:00 Resp 22 H 02/03/17 12:00 BP 150/91 H 02/03/17 12:47 Pulse Ox 94 L 02/03/17 12:00 Weight - Most Recent: 108.908 kg I&O - Last 24 Hours: Intake & Output 02/02/17 02/03/17 02/03/17 22:59 06:59 14:59 Intake Total 1143 1004 180 Output Total 710 Balance 433 1004 180 Lab Results Last 24 Hours: Laboratory Results - last 24 hr 02/03/17 02/03/17 02/03/17 Range/Units 04:45 04:45 04:45 WBC 8.31 (4.23-9.07) K/mm3 RBC 5.07 (4.63-6.08) M/mm3 Hgb 14.9 (13.7-17.5) gm/L Hct 44.5 (40.1-51.0) % MCV 87.8 (79.0-92.2) fl MCH 29.4 (25.7-32.2) pg MCHC 33.5 (32.2-35.5) g/dl RDW Std Deviation 43.3 (35.1-43.9) fL Plt Count 218 (163-337) K/mm3 MPV 10.9 (9.4-12.3) fl Neut % (Auto) 59.0 (34.0-67.9) % Lymph % (Auto) 24.8 (21.8-53.1) % [place] % (Auto) 13.8 H (5.3-12.2) % Eos % (Auto) 2.0 (0.8-7.0) Baso % (Auto) 0.2 (0.1-1.2) % Neut # (Auto) 4.89 (1.78-5.38) K/mm3 Lymph # (Auto) 2.06 (1.32-3.57) K/mm3 [place] # (Auto) 1.15 H (0.30-0.82) K/mm3 Eos # (Auto) 0.17 (0.04-0.54) K/mm3 Baso # (Auto) 0.02 (0.01-0.08) K/mm3 Sodium 140 (136-145) mEq/L Potassium 3.7 (3.5-5.1) mEq/L Chloride 104 (98-107) mEq/L Carbon Dioxide 24 (21-32) mEq/L Anion Gap 15.7 H (5-15) BUN 9 (7-18) mg/dL Creatinine 1.0 (0.7-1.3) mg/dL Est Cr Clr Drug Dosing 88.35 mL/min Estimated GFR (MDRD) > 60 (>60) mL/min BUN/Creatinine Ratio 9.0 L (14-18) Glucose 110 H (74-106) mg/dL Hemoglobin A1c 5.70 (4.50-6.20) % Calcium 9.0 (8.5-10.1) mg/dL Phosphorus 4.0 (2.6-4.7) mg/dL Magnesium 1.8 (1.8-2.4) mg/dl Med Orders - Current: Current Medications Acetaminophen (Tylenol) 650 mg PO Q4H PRN PRN Reason: Pain (Mild 1-3)/fever Albuterol/Ipratropium (Duoneb 3.0-0.5 Mg/3 Ml) 3 ml NEB Q4H PRN PRN Reason: Shortness Of Breath/wheezing Chlordiazepoxide HCl (Librium) 50 mg PO BID [facility] Last Admin: 02/03/17 08:52 Dose: 50 mg Clonidine HCl (Catapres) 0.2 mg PO Q8H [facility] Docusate Sodium (Colace) 100 mg PO BID PRN PRN Reason: Constipation Enoxaparin Sodium (Lovenox) 40 mg SUBCUT DAILY [facility] Last Admin: 02/03/17 08:59 Dose: 40 mg Folic Acid (Folic Acid) 1 mg PO DAILY [facility] Stop: 02/05/17 09:01 Last Admin: 02/03/17 08:52 Dose: 1 mg Haloperidol Lactate (Haldol) 2 mg IM Q4H PRN PRN Reason: Agitation Hydralazine HCl (Apresoline) 20 mg IVPUSH Q6H PRN PRN Reason: Hypertension Last Admin: 02/03/17 12:30 Dose: 20 mg Magnesium Sulfate 2 gm/ Premix 50 mls @ 25 mls/hr IV ONETIME ONE Stop: 02/03/17 14:29 Last Admin: 02/03/17 12:54 Dose: 25 mls/hr Lorazepam (Ativan) 0 mg PO ASDIRECTED JAMEL PRN Reason: Protocol Last Admin: 02/03/17 11:52 Dose: 2 mg Lorazepam (Ativan) 0 mg IV ASDIRECTED JAMEL PRN Reason: Protocol Last Admin: 02/03/17 09:59 Dose: 2 mg Metoprolol Tartrate (Lopressor) 25 mg PO Q6H PRN PRN Reason: See Label Comment Miscellaneous Information (Remove Patch) 0 ea TRDERM DAILY [facility] Last Admin: 02/03/17 08:59 Dose: Not Given Nicotine (Habitrol) 21 mg TRDERM DAILY [facility] Last Admin: 02/03/17 08:53 Dose: Not Given Ondansetron HCl (Zofran Odt) 4 mg PO Q6H PRN PRN Reason: nausea, able to take PO Last Admin: 02/02/17 15:17 Dose: 4 mg Ondansetron HCl (Zofran) 4 mg IV Q6H PRN PRN Reason: Nausea/Vomiting Last Admin: 02/03/17 11:51 Dose: 4 mg Polyethylene Glycol (Miralax) 17 gm PO DAILY PRN PRN Reason: Constipation Thiamine HCl (Vitamin B-1) 100 mg PO DAILY [facility] Last Admin: 02/03/17 08:52 Dose: 100 mg Discontinued Medications Chlordiazepoxide HCl (Librium) 0 mg PO ASDIRECTED [facility] PRN Reason: Protocol Clonidine HCl (Catapres) 0.1 mg PO Q4H PRN PRN Reason: Agitation Last Admin: 02/03/17 08:58 Dose: 0.1 mg Clonidine HCl (Catapres) 0.1 mg PO Q4H JAMEL Clonidine HCl (Catapres) 0.1 mg PO Q8H [facility] Diphenhydramine HCl (Benadryl) 25 mg IVPUSH ONETIME ONE Stop: 02/02/17 02:24 Last Admin: 02/02/17 02:32 Dose: 25 mg Hydralazine HCl (Apresoline) 10 mg IVPUSH Q2H PRN PRN Reason: Hypertension Last Admin: 02/02/17 15:54 Dose: 10 mg Hydralazine HCl (Apresoline) 20 mg IVPUSH Q2H PRN PRN Reason: Hypertension Sodium Chloride (Normal Saline) 1,000 mls @ 150 mls/hr IV ASDIRECTED [facility] Last Admin: 02/01/17 15:57 Dose: 150 mls/hr Dextrose/Sodium Chloride (Dextrose 5%-Normal Saline) 1,000 mls @ 125 mls/hr IV ASDIRECTED [facility] Last Admin: 02/02/17 02:31 Dose: 125 mls/hr Sodium Chloride (Sodium Chloride 0.45%) 1,000 mls @ 75 mls/hr IV ASDIRECTED [facility] Last Admin: 02/02/17 12:53 Dose: 75 mls/hr Lorazepam (Ativan) 2 mg IVPUSH ONETIME ONE Stop: 02/01/17 21:01 Last Admin: 02/01/17 21:05 Dose: 2 mg Lorazepam (Ativan) 2 mg IVPUSH ONETIME ONE Stop: 02/02/17 02:24 Last Admin: 02/02/17 02:32 Dose: 2 mg Lorazepam (Ativan) 1 mg IVPUSH ONETIME ONE Stop: 02/02/17 06:15 Last Admin: 02/02/17 06:20 Dose: 1 mg Lorazepam (Ativan) 1 mg IVPUSH ONETIME ONE Stop: 02/02/17 09:26 Last Admin: 02/02/17 09:30 Dose: 1 mg Lorazepam (Ativan) 2 mg PO ONETIME ONE Stop: 02/02/17 20:21 Last Admin: 02/02/17 20:29 Dose: 2 mg Lorazepam (Ativan) 2 mg PO ONETIME ONE Stop: 02/02/17 21:49 Last Admin: 02/02/17 22:05 Dose: 2 mg - Exam Quality Assessment: DVT Prophylaxis General: Alert, Oriented, No Acute Distress HEENT: Pupils Equal, Pupils Reactive, EOMI Neck: Supple, Trachea Midline Lungs: Clear to Auscultation, Normal Respiratory Effort Cardiovascular: Regular Rate GI/Abdominal Exam: Normal Bowel Sounds, Soft, Non-Tender, No Organomegaly (Male) Exam: Deferred Back Exam: Normal Inspection Extremities: Normal Inspection, Normal Range of Motion Skin: Warm Neurological: No New Focal Deficit Psy/Mental Status: Alert, Anxious, Depressed - Problem List Review Problem List Initiated/Reviewed/Updated: Yes - My Orders Last 24 Hours: My Active Orders 02/03/17 12:14 hydrALAZINE [Apresoline] 20 mg IVPUSH Q6H PRN 02/03/17 12:30 Magnesium Sulfate/Water [Magnesium Sulfate 2 GM in Water 50 ML] 2 gm Premix Bag 1 bag IV ONETIME 02/03/17 15:00 cloNIDine [Catapres] 0.2 mg PO Q8H - Plan Plan:: Assessment: 1. Alcohol withdrawal syndrome. 2. Suicidal ideation. 3. Posttraumatic stress disorder. 4. Generalized anxiety disorder. 5. Depressive disorder. Plan: 1. Continue ICU for detox. 2. Start CIWA protocol according to CIWA scale with IV and by mouth Ativan, Librium. 3. Volume resuscitation with IV 0.9% normal saline at 100 mL per hour; MVI/ Thiamine. 4. Suicide, Seizure and fall precautions. One-to-one observation. 5. DVT prophylaxis with Lovenox. 6. Consult to Dr. Cortez for psychiatric evaluation; substance abuse consult, HARRY 0.3. 7. Social service consult to arrange for transfer to the [facility] for psychiatric management once stable.
[2017-02-03] MEDS: cloNIDine 0.1 MG Tab PO SCH ×2 (14:27→22:29)
[2017-02-03] MEDS ORDERED: cloNIDine 0.1 MG Tab PO SCH ×2 (15:00→16:00)
[2017-02-03] MEDS ORDERED: Gabapentin 100 MG Cap PO PRN (17:23)
[2017-02-03] MEDS ORDERED: traZODone 50 MG Tab PO SCH (21:00)
[2017-02-03] MEDS ORDERED: Simvastatin 20 MG Tab PO SCH (21:00)
[2017-02-03] MEDS ORDERED: Topiramate 25 MG Tab PO SCH (21:00)
--- NOTE | 2017-02-03 22:04 | CONS ---
CONSULTING PHYSICIAN: Kali Bennett LAC DATE OF CONSULTATION: 02/03/2017 TIME: 9:09 p.m. The patient is a 46-year-old man admitted to [facility] on 02/01/2017. An Alcohol and Drug consultation was requested by his medical treatment team. I began the patient evaluation at approximately 4:46 p.m. and concluded the interview with the patient at approximately 5:46 p.m. on 02/03/2017. In the patient consultation, I consulted with EDWIN Sanchez regarding the evaluation, continued care, and safe discharge planning. The patient had requested that I speak with his daughters and mother while in the planning process. I called the patient's daughter, Nory, however, there was no answer and I did not leave a message. EDWIN Sanchez and I called the patient's mother, Domi, for her input. I will compose and transcribe the patient's evaluation as time permits during regular business hours. MMODAL /[id number]
[2017-02-04] MEDS: Thiamine 100 MG Tab PO SCH (08:04)
[2017-02-04] MEDS: chlordiazePOXIDE 25 MG Cap PO SCH (08:05)
[2017-02-04] MEDS: Folic Acid 1 MG Tab PO SCH (08:05)
[2017-02-04] MEDS: cloNIDine 0.1 MG Tab PO SCH ×2 (08:05→15:18)
[2017-02-04] MEDS: Enoxaparin 40 MG/0.4 ML Syringe SUBCUT SCH (08:06)
[2017-02-04] MEDS ORDERED: Pantoprazole 40 MG Tab.CR PO SCH (09:00)
[2017-02-04] MEDS ORDERED: amLODIPine 10 MG Tab PO SCH (09:00)
[2017-02-04] MEDS ORDERED: Topiramate 25 MG Tab PO SCH (10:14)
[2017-02-04] MEDS ORDERED: QUEtiapine 25 MG Tab PO ONE (10:40)
--- NOTE | 2017-02-04 12:26 | PCM.PN ---
- General Info Date of Service: 02/04/17 Functional Status: Reports: Tolerating Diet, Ambulating, Other (auditory hallucinations) - Review of Systems General: Reports: No Symptoms HEENT: Reports: No Symptoms Pulmonary: Reports: No Symptoms Cardiovascular: Reports: No Symptoms Gastrointestinal: Reports: No Symptoms Genitourinary: Reports: No Symptoms Musculoskeletal: Reports: No Symptoms Skin: Reports: No Symptoms Neurological: Reports: No Symptoms Psychiatric: Reports: No Symptoms - Patient Data Vitals - Most Recent: Last Vital Signs Temp 36.7 C 02/04/17 11:39 Pulse 92 02/04/17 11:39 Resp 18 02/04/17 11:39 BP 138/85 02/04/17 11:39 Pulse Ox 94 L 02/04/17 11:39 Weight - Most Recent: 108.182 kg I&O - Last 24 Hours: Intake & Output 02/03/17 02/04/17 02/04/17 22:59 06:59 14:59 Intake Total 1320 250 240 Balance 1320 250 240 Med Orders - Current: Current Medications Acetaminophen (Tylenol) 650 mg PO Q4H PRN PRN Reason: Pain (Mild 1-3)/fever Albuterol/Ipratropium (Duoneb 3.0-0.5 Mg/3 Ml) 3 ml NEB Q4H PRN PRN Reason: Shortness Of Breath/wheezing Amlodipine Besylate (Norvasc) 10 mg PO DAILY [facility] Last Admin: 02/04/17 08:04 Dose: 10 mg Chlordiazepoxide HCl (Librium) 50 mg PO BID [facility] Last Admin: 02/04/17 08:05 Dose: 50 mg Clonidine HCl (Catapres) 0.2 mg PO Q8H [facility] Last Admin: 02/04/17 08:05 Dose: 0.2 mg Docusate Sodium (Colace) 100 mg PO BID PRN PRN Reason: Constipation Enoxaparin Sodium (Lovenox) 40 mg SUBCUT DAILY [facility] Last Admin: 02/04/17 08:06 Dose: 40 mg Folic Acid (Folic Acid) 1 mg PO DAILY [facility] Stop: 02/05/17 09:01 Last Admin: 02/04/17 08:05 Dose: 1 mg Hydralazine HCl (Apresoline) 20 mg IVPUSH Q6H PRN PRN Reason: Hypertension Last Admin: 02/03/17 12:30 Dose: 20 mg Lorazepam (Ativan) 0 mg PO ASDIRECTED JAMEL PRN Reason: Protocol Last Admin: 02/03/17 21:11 Dose: 2 mg Lorazepam (Ativan) 0 mg IV ASDIRECTED JAMEL PRN Reason: Protocol Last Admin: 02/03/17 19:14 Dose: 2 mg Metoprolol Tartrate (Lopressor) 25 mg PO Q6H PRN PRN Reason: See Label Comment Last Admin: 02/03/17 15:07 Dose: 25 mg Mirtazapine (Remeron) 30 mg PO BEDTIME [facility] Miscellaneous Information (Remove Patch) 0 ea TRDERM DAILY [facility] Last Admin: 02/04/17 11:41 Dose: Not Given Ondansetron HCl (Zofran Odt) 4 mg PO Q6H PRN PRN Reason: nausea, able to take PO Last Admin: 02/02/17 15:17 Dose: 4 mg Ondansetron HCl (Zofran) 4 mg IV Q6H PRN PRN Reason: Nausea/Vomiting Last Admin: 02/03/17 11:51 Dose: 4 mg Pantoprazole Sodium (Protonix) 40 mg PO DAILY [facility] Last Admin: 02/04/17 08:05 Dose: 40 mg Polyethylene Glycol (Miralax) 17 gm PO DAILY PRN PRN Reason: Constipation Prazosin HCl (Minpress) 2 mg PO BEDTIME [facility] Quetiapine Fumarate (Seroquel) 75 mg PO BEDTIME [facility] Simvastatin (Zocor) 20 mg PO BEDTIME [facility] Last Admin: 02/03/17 21:11 Dose: 20 mg Thiamine HCl (Vitamin B-1) 100 mg PO DAILY [facility] Last Admin: 02/04/17 08:04 Dose: 100 mg Topiramate (Topamax) 25 mg PO BID [facility] Last Admin: 02/04/17 11:40 Dose: 25 mg Discontinued Medications Chlordiazepoxide HCl (Librium) 0 mg PO ASDIRECTED JAMEL PRN Reason: Protocol Clonidine HCl (Catapres) 0.1 mg PO Q4H PRN PRN Reason: Agitation Last Admin: 02/03/17 08:58 Dose: 0.1 mg Clonidine HCl (Catapres) 0.1 mg PO Q4H [facility] Clonidine HCl (Catapres) 0.1 mg PO Q8H [facility] Diphenhydramine HCl (Benadryl) 25 mg IVPUSH ONETIME ONE Stop: 02/02/17 02:24 Last Admin: 02/02/17 02:32 Dose: 25 mg Gabapentin (Neurontin) 100 mg PO ASDIRECTED PRN PRN Reason: Pain Haloperidol Lactate (Haldol) 2 mg IM Q4H PRN PRN Reason: Psychosis Hydralazine HCl (Apresoline) 10 mg IVPUSH Q2H PRN PRN Reason: Hypertension Last Admin: 02/02/17 15:54 Dose: 10 mg Hydralazine HCl (Apresoline) 20 mg IVPUSH Q2H PRN PRN Reason: Hypertension Sodium Chloride (Normal Saline) 1,000 mls @ 150 mls/hr IV ASDIRECTED [facility] Last Admin: 02/01/17 15:57 Dose: 150 mls/hr Dextrose/Sodium Chloride (Dextrose 5%-Normal Saline) 1,000 mls @ 125 mls/hr IV ASDIRECTED [facility] Last Admin: 02/02/17 02:31 Dose: 125 mls/hr Sodium Chloride (Sodium Chloride 0.45%) 1,000 mls @ 75 mls/hr IV ASDIRECTED [facility] Last Admin: 02/02/17 12:53 Dose: 75 mls/hr Magnesium Sulfate 2 gm/ Premix 50 mls @ 25 mls/hr IV ONETIME ONE Stop: 02/03/17 14:29 Last Admin: 02/03/17 12:54 Dose: 25 mls/hr Lorazepam (Ativan) 2 mg IVPUSH ONETIME ONE Stop: 02/01/17 21:01 Last Admin: 02/01/17 21:05 Dose: 2 mg Lorazepam (Ativan) 2 mg IVPUSH ONETIME ONE Stop: 02/02/17 02:24 Last Admin: 02/02/17 02:32 Dose: 2 mg Lorazepam (Ativan) 1 mg IVPUSH ONETIME ONE Stop: 02/02/17 06:15 Last Admin: 02/02/17 06:20 Dose: 1 mg Lorazepam (Ativan) 1 mg IVPUSH ONETIME ONE Stop: 02/02/17 09:26 Last Admin: 02/02/17 09:30 Dose: 1 mg Lorazepam (Ativan) 2 mg PO ONETIME ONE Stop: 02/02/17 20:21 Last Admin: 02/02/17 20:29 Dose: 2 mg Lorazepam (Ativan) 2 mg PO ONETIME ONE Stop: 02/02/17 21:49 Last Admin: 02/02/17 22:05 Dose: 2 mg Nicotine (Habitrol) 21 mg TRDERM DAILY [facility] Last Admin: 02/03/17 08:53 Dose: Not Given Quetiapine Fumarate (Seroquel) 25 mg PO ONETIME ONE Stop: 02/04/17 10:41 Last Admin: 02/04/17 11:41 Dose: 25 mg Topiramate (Topamax) 25 mg PO BEDTIME [facility] Last Admin: 02/03/17 21:09 Dose: 25 mg Trazodone HCl (Trazodone) 200 mg PO BEDTIME [facility] Last Admin: 02/03/17 21:09 Dose: 200 mg - Exam Quality Assessment: DVT Prophylaxis General: Alert, Oriented, Cooperative, No Acute Distress HEENT: Pupils Equal, Pupils Reactive, EOMI Neck: Supple, Trachea Midline Lungs: Normal Respiratory Effort Cardiovascular: Regular Rate, Regular Rhythm GI/Abdominal Exam: Normal Bowel Sounds, Soft, Non-Tender, No Organomegaly, No Distention (Male) Exam: Deferred Back Exam: Normal Inspection Extremities: Normal Inspection Neurological: No New Focal Deficit Psy/Mental Status: Alert, Anxious - Problem List & Annotations (1) Alcohol withdrawal SNOMED Code(s): 362600605 Code(s): F10.239 - ALCOHOL DEPENDENCE WITH WITHDRAWAL, UNSPECIFIED Status: Acute Qualifiers: Complication of substance-induced condition: uncomplicated Qualified Code(s ): F10.230 - Alcohol dependence with withdrawal, uncomplicated (2) Alcohol withdrawal syndrome SNOMED Code(s): 305041295 Code(s): F10.239 - ALCOHOL DEPENDENCE WITH WITHDRAWAL, UNSPECIFIED Status: Acute Priority: High Qualifiers: Complication of substance-induced condition: uncomplicated Qualified Code(s ): F10.230 - Alcohol dependence with withdrawal, uncomplicated (3) Suicidal ideation SNOMED Code(s): 7526047 Code(s): R45.851 - SUICIDAL IDEATIONS Status: Acute Priority: High (4) Alcohol abuse SNOMED Code(s): 19268379 Code(s): F10.10 - ALCOHOL ABUSE, UNCOMPLICATED Status: Chronic Priority: High (5) Anxiety disorder SNOMED Code(s): 647949470 Code(s): F41.9 - ANXIETY DISORDER, UNSPECIFIED Status: Chronic Priority: Medium Qualifiers: Anxiety disorder type: generalized anxiety disorder Qualified Code(s): F41.1 - Generalized anxiety disorder (6) Depressive disorder SNOMED Code(s): 57120036 Code(s): F32.9 - MAJOR DEPRESSIVE DISORDER, SINGLE EPISODE, UNSPECIFIED Status: Chronic Priority: Medium (7) Posttraumatic stress disorder SNOMED Code(s): 61329371 Code(s): F43.10 - POST-TRAUMATIC STRESS DISORDER, UNSPECIFIED Status: Chronic Priority: Medium - Problem List Review Problem List Initiated/Reviewed/Updated: Yes - My Orders Last 24 Hours: My Active Orders 02/03/17 12:14 hydrALAZINE [Apresoline] 20 mg IVPUSH Q6H PRN 02/03/17 15:00 cloNIDine [Catapres] 0.2 mg PO Q8H 02/03/17 21:00 Simvastatin [Zocor] 20 mg PO BEDTIME 02/04/17 09:00 Pantoprazole [ProTONIX] 40 mg PO DAILY amLODIPine [Norvasc] 10 mg PO DAILY - Plan Plan:: Assessment: 1. Alcohol withdrawal syndrome. 2. Suicidal ideation; "PTSD voices" giving the patient directions upon awakening. 3. Posttraumatic stress disorder. 4. Generalized anxiety disorder. 5. Depressive disorder. Plan: 1. Continue ICU for detox. 2. Start CIWA protocol according to CIWA scale with IV and by mouth Ativan, Librium. 3. Volume resuscitation with IV 0.9% normal saline at 100 mL per hour; MVI/ Thiamine. 4. Suicide, Seizure and fall precautions. One-to-one observation. 5. DVT prophylaxis with Lovenox. 6. Consult to Dr. Cortez for psychiatric evaluation; substance abuse consult, HARRY 0.3. 7. Social service consult to arrange for transfer to the [facility] for psychiatric management once stable. [facility] 24-72 hours, currently stable last .
[2017-02-04] MEDS ORDERED: Sodium Chloride 0.45% 1,000 ML IV SCH (15:15)
[2017-02-04] MEDS: LORazepam 1 MG Tab PO SCH (15:19)
[2017-02-04 15:20] VITALS: BP 126/88
[2017-02-04] MEDS ORDERED: Mirtazapine 30 MG Tab PO SCH (21:00)
[2017-02-04] MEDS ORDERED: QUEtiapine 25 MG Tab PO SCH (21:00)
[2017-02-04] MEDS ORDERED: Prazosin 1 MG Cap PO SCH (21:00)
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
--- NOTE | 2017-02-05 15:32 | PCM.DCSUM1 ---
Discharge Summary - Hospital Course Free Text/Narrative:: 46 year old [employer] was treated for suicidal thoughts and ETOH withdrawal; CIWA range at the time of transfer 15-18; discussed with [place] physician, hospitalist service station helper accepted transfer to continue treatment for withdrawal. He had threatened to shoot himself, felt overwhelmed after getting behind financially with his bills. He presented with a blood ETOH level 0.3. During his hospitalization he was seen by psychiatry and substance abuse services. Plan discussed continue medical management for withdrawal followed by psychiatric and substance abuse. Primary Diagnosis: 1. Alcohol abuse/dependence; withdrawal syndrome 3. Posttraumatic stress disorder. 4. Generalized anxiety disorder. 5. Depressive disorder. 6. Bipolar Disorder 7. Psychosis, unspecified Diet Heart healthy Activity As tolerated Meds Please see list at transfer - Discharge Data Discharge Date: 02/04/17 Discharge Disposition: DC/Tfer to [facility]/[place] [facility] Condition: Good - Discharge Diagnosis/Problem(s) (1) Alcohol withdrawal SNOMED Code(s): 753058324 ICD Code: F10.239 - ALCOHOL DEPENDENCE WITH WITHDRAWAL, UNSPECIFIED Status : Acute Qualifiers: Complication of substance-induced condition: uncomplicated Qualified Code(s ): F10.230 - Alcohol dependence with withdrawal, uncomplicated (2) Alcohol withdrawal syndrome SNOMED Code(s): 448047294 ICD Code: F10.239 - ALCOHOL DEPENDENCE WITH WITHDRAWAL, UNSPECIFIED Status : Acute Priority: High Qualifiers: Complication of substance-induced condition: uncomplicated Qualified Code(s ): F10.230 - Alcohol dependence with withdrawal, uncomplicated (3) Suicidal ideation SNOMED Code(s): 5611026 ICD Code: R45.851 - SUICIDAL IDEATIONS Status: Acute Priority: High (4) Alcohol abuse SNOMED Code(s): 52207826 ICD Code: F10.10 - ALCOHOL ABUSE, UNCOMPLICATED Status: Chronic Priority : High (5) Anxiety disorder SNOMED Code(s): 394805404 ICD Code: F41.9 - ANXIETY DISORDER, UNSPECIFIED Status: Chronic Priority : Medium Qualifiers: Anxiety disorder type: generalized anxiety disorder Qualified Code(s): F41.1 - Generalized anxiety disorder (6) Depressive disorder SNOMED Code(s): 24063685 ICD Code: F32.9 - MAJOR DEPRESSIVE DISORDER, SINGLE EPISODE, UNSPECIFIED Status: Chronic Priority: Medium (7) Posttraumatic stress disorder SNOMED Code(s): 48785002 ICD Code: F43.10 - POST-TRAUMATIC STRESS DISORDER, UNSPECIFIED Status: Chronic Priority: Medium - Patient Instructions Diet: Heart Healthy Diet Activity: Bedrest, May Use Bathroom Driving: Do Not Drive Showering/Bathing: May Shower Notify Provider of: Fever - Discharge Plan Prescriptions/Med Rec: Acetaminophen [Tylenol] 650 mg PO Q4H PRN #60 tablet PRN Reason: Pain (Moderate 4-6) Albuterol/Ipratropium [DuoNeb 3.0-0.5 MG/3 ML] 3 ml NEB Q4H PRN #30 neb PRN Reason: Shortness Of Breath amLODIPine [Norvasc] 10 mg PO DAILY #30 tablet chlordiazePOXIDE [Librium] 50 mg PO BID #60 cap cloNIDine [Catapres] 0.2 mg PO Q8H #90 tablet Docusate Sodium [Colace] 100 mg PO BID PRN #60 cap PRN Reason: Constipation Enoxaparin [Lovenox] 40 mg SUBCUT DAILY #30 syringe Folic Acid 1 mg PO DAILY #30 tablet hydrALAZINE [Apresoline] 20 mg IVPUSH Q6H PRN #20 sdv PRN Reason: Hypertension LORazepam [Ativan] 5 mg PO ASDIRECTED #30 tablet LORazepam [Ativan] 2 mg IV Q4H #14 vial Metoprolol Tartrate [Lopressor] 25 mg PO Q6H PRN #120 tablet PRN Reason: Withdrawal Symptoms Mirtazapine [Remeron] 30 mg PO BEDTIME #30 tablet Ondansetron [Zofran ODT] 4 mg PO Q6H PRN #30 tab.dis PRN Reason: Nausea/Vomiting Pantoprazole [ProTONIX] 40 mg PO DAILY #30 tab.cr Polyethylene Glycol 3350 [MiraLAX] 17 gm PO DAILY PRN #30 packet PRN Reason: Constipation Prazosin [Minpress] 2 mg PO BEDTIME #30 cap QUEtiapine [SEROquel] 75 mg PO BEDTIME #30 tablet Simvastatin [Zocor] 20 mg PO BEDTIME #30 tablet Thiamine [Vitamin B-1] 100 mg PO DAILY #30 tablet Home Medications: Home Meds Aspirin [Halfprin] 81 mg PO DAILY 02/03/17 [History] Cyanocobalamin (Vitamin B-12) [Vitamin B-12] 1,000 mcg PO DAILY 02/03/17 [ History] Fish Oil/Holland-3 Fatty Acids [Fish Oil 1,000 MG] 1 cap PO DAILY 02/03/17 [ History] Topiramate 25 mg PO BEDTIME 02/03/17 [History] amLODIPine Besylate [Amlodipine Besylate] 10 mg PO DAILY 02/03/17 [History] traZODone HCl [Trazodone HCl] 200 mg PO BEDTIME 02/03/17 [History] Acetaminophen [Tylenol] 650 mg PO Q4H PRN #60 tablet 02/04/17 [Rx] Albuterol/Ipratropium [DuoNeb 3.0-0.5 MG/3 ML] 3 ml NEB Q4H PRN #30 neb [Rx] Docusate Sodium [Colace] 100 mg PO BID PRN #60 cap 02/04/17 [Rx] Enoxaparin [Lovenox] 40 mg SUBCUT DAILY #30 syringe 02/04/17 [Rx] Folic Acid 1 mg PO DAILY #30 tablet 02/04/17 [Rx] LORazepam [Ativan] 2 mg IV Q4H #14 vial 02/04/17 [Rx] LORazepam [Ativan] 5 mg PO ASDIRECTED #30 tablet 02/04/17 [Rx] Metoprolol Tartrate [Lopressor] 25 mg PO Q6H PRN #120 tablet 02/04/17 [Rx] Mirtazapine [Remeron] 30 mg PO BEDTIME #30 tablet 02/04/17 [Rx] Ondansetron [Zofran ODT] 4 mg PO Q6H PRN #30 tab.dis 02/04/17 [Rx] Pantoprazole [ProTONIX] 40 mg PO DAILY #30 tab.cr 02/04/17 [Rx] Polyethylene Glycol 3350 [MiraLAX] 17 gm PO DAILY PRN #30 packet 02/04/17 [Rx] Prazosin [Minpress] 2 mg PO BEDTIME #30 cap 02/04/17 [Rx] QUEtiapine [SEROquel] 75 mg PO BEDTIME #30 tablet 02/04/17 [Rx] Simvastatin [Zocor] 20 mg PO BEDTIME #30 tablet 02/04/17 [Rx] Thiamine [Vitamin B-1] 100 mg PO DAILY #30 tablet 02/04/17 [Rx] amLODIPine [Norvasc] 10 mg PO DAILY #30 tablet 02/04/17 [Rx] chlordiazePOXIDE [Librium] 50 mg PO BID #60 cap 02/04/17 [Rx] cloNIDine [Catapres] 0.2 mg PO Q8H #90 tablet 02/04/17 [Rx] hydrALAZINE [Apresoline] 20 mg IVPUSH Q6H PRN #20 sdv 02/04/17 [Rx] Patient Handouts: No-harm Safety Contract, Self-Destructive Behavior, Persistent Depressive Disorder, Suicidal Feelings: How to Help Yourself, Stress and Stress Management, Alcohol Withdrawal, [id number] Forms: ED Department Discharge Referrals: Sofia Pierre DO [Primary Care Provider] - - Discharge Summary/Plan Comment DC Time >30 min.: No - General Info Date of Service: 02/02/17 Functional Status: Reports: Tolerating Diet, Ambulating, Urinating - Review of Systems General: Reports: No Symptoms HEENT: Reports: No Symptoms Pulmonary: Reports: No Symptoms Cardiovascular: Reports: No Symptoms Gastrointestinal: Reports: No Symptoms Genitourinary: Reports: No Symptoms Musculoskeletal: Reports: No Symptoms Skin: Reports: No Symptoms Neurological: Reports: No Symptoms Psychiatric: Reports: No Symptoms - Patient Data Vitals - Most Recent: Last Vital Signs Temp 36.7 C 02/04/17 11:39 Pulse 92 02/04/17 11:39 Resp 18 02/04/17 11:39 BP 126/88 02/04/17 15:18 Pulse Ox 94 L 02/04/17 11:39 Weight - Most Recent: 108.182 kg Med Orders - Current: Current Medications Discontinued Medications Acetaminophen (Tylenol) 650 mg PO Q4H PRN PRN Reason: Pain (Mild 1-3)/fever Albuterol/Ipratropium (Duoneb 3.0-0.5 Mg/3 Ml) 3 ml NEB Q4H PRN PRN Reason: Shortness Of Breath/wheezing Amlodipine Besylate (Norvasc) 10 mg PO DAILY [facility] Last Admin: 02/04/17 08:04 Dose: 10 mg Chlordiazepoxide HCl (Librium) 0 mg PO ASDIRECTED JAMEL PRN Reason: Protocol Chlordiazepoxide HCl (Librium) 50 mg PO BID [facility] Last Admin: 02/04/17 08:05 Dose: 50 mg Clonidine HCl (Catapres) 0.1 mg PO Q4H PRN PRN Reason: Agitation Last Admin: 02/03/17 08:58 Dose: 0.1 mg Clonidine HCl (Catapres) 0.1 mg PO Q4H JAMEL Clonidine HCl (Catapres) 0.1 mg PO Q8H JAMEL Clonidine HCl (Catapres) 0.2 mg PO Q8H [facility] Last Admin: 02/04/17 15:18 Dose: 0.2 mg Diphenhydramine HCl (Benadryl) 25 mg IVPUSH ONETIME ONE Stop: 02/02/17 02:24 Last Admin: 02/02/17 02:32 Dose: 25 mg Docusate Sodium (Colace) 100 mg PO BID PRN PRN Reason: Constipation Enoxaparin Sodium (Lovenox) 40 mg SUBCUT DAILY [facility] Last Admin: 02/04/17 08:06 Dose: 40 mg Folic Acid (Folic Acid) 1 mg PO DAILY [facility] Stop: 02/05/17 09:01 Last Admin: 02/04/17 08:05 Dose: 1 mg Gabapentin (Neurontin) 100 mg PO ASDIRECTED PRN PRN Reason: Pain Haloperidol Lactate (Haldol) 2 mg IM Q4H PRN PRN Reason: Psychosis Hydralazine HCl (Apresoline) 10 mg IVPUSH Q2H PRN PRN Reason: Hypertension Last Admin: 02/02/17 15:54 Dose: 10 mg Hydralazine HCl (Apresoline) 20 mg IVPUSH Q2H PRN PRN Reason: Hypertension Hydralazine HCl (Apresoline) 20 mg IVPUSH Q6H PRN PRN Reason: Hypertension Last Admin: 02/03/17 12:30 Dose: 20 mg Sodium Chloride (Normal Saline) 1,000 mls @ 150 mls/hr IV ASDIRECTED JAMEL Last Admin: 02/01/17 15:57 Dose: 150 mls/hr Dextrose/Sodium Chloride (Dextrose 5%-Normal Saline) 1,000 mls @ 125 mls/hr IV ASDIRECTED [facility] Last Admin: 02/02/17 02:31 Dose: 125 mls/hr Sodium Chloride (Sodium Chloride 0.45%) 1,000 mls @ 75 mls/hr IV ASDIRECTED JAMEL Last Admin: 02/02/17 12:53 Dose: 75 mls/hr Magnesium Sulfate 2 gm/ Premix 50 mls @ 25 mls/hr IV ONETIME ONE Stop: 02/03/17 14:29 Last Admin: 02/03/17 12:54 Dose: 25 mls/hr Sodium Chloride (Sodium Chloride 0.45%) 1,000 mls @ 50 mls/hr IV ASDIRECTED JAMEL Lorazepam (Ativan) 2 mg IVPUSH ONETIME ONE Stop: 02/01/17 21:01 Last Admin: 02/01/17 21:05 Dose: 2 mg Lorazepam (Ativan) 2 mg IVPUSH ONETIME ONE Stop: 02/02/17 02:24 Last Admin: 02/02/17 02:32 Dose: 2 mg Lorazepam (Ativan) 1 mg IVPUSH ONETIME ONE Stop: 02/02/17 06:15 Last Admin: 02/02/17 06:20 Dose: 1 mg Lorazepam (Ativan) 1 mg IVPUSH ONETIME ONE Stop: 02/02/17 09:26 Last Admin: 02/02/17 09:30 Dose: 1 mg Lorazepam (Ativan) 0 mg PO ASDIRECTED JAMEL PRN Reason: Protocol Last Admin: 02/04/17 15:19 Dose: 1 mg Lorazepam (Ativan) 0 mg IV ASDIRECTED JAMEL PRN Reason: Protocol Last Admin: 02/03/17 19:14 Dose: 2 mg Lorazepam (Ativan) 2 mg PO ONETIME ONE Stop: 02/02/17 20:21 Last Admin: 02/02/17 20:29 Dose: 2 mg Lorazepam (Ativan) 2 mg PO ONETIME ONE Stop: 02/02/17 21:49 Last Admin: 02/02/17 22:05 Dose: 2 mg Metoprolol Tartrate (Lopressor) 25 mg PO Q6H PRN PRN Reason: See Label Comment Last Admin: 02/03/17 15:07 Dose: 25 mg Mirtazapine (Remeron) 30 mg PO BEDTIME [facility] Miscellaneous Information (Remove Patch) 0 ea TRDERM DAILY [facility] Last Admin: 02/04/17 11:41 Dose: Not Given Nicotine (Habitrol) 21 mg TRDERM DAILY [facility] Last Admin: 02/03/17 08:53 Dose: Not Given Ondansetron HCl (Zofran Odt) 4 mg PO Q6H PRN PRN Reason: nausea, able to take PO Last Admin: 02/02/17 15:17 Dose: 4 mg Ondansetron HCl (Zofran) 4 mg IV Q6H PRN PRN Reason: Nausea/Vomiting Last Admin: 02/03/17 11:51 Dose: 4 mg Pantoprazole Sodium (Protonix) 40 mg PO DAILY [facility] Last Admin: 02/04/17 08:05 Dose: 40 mg Polyethylene Glycol (Miralax) 17 gm PO DAILY PRN PRN Reason: Constipation Prazosin HCl (Minpress) 2 mg PO BEDTIME [facility] Quetiapine Fumarate (Seroquel) 75 mg PO BEDTIME [facility] Quetiapine Fumarate (Seroquel) 25 mg PO ONETIME ONE Stop: 02/04/17 10:41 Last Admin: 02/04/17 11:41 Dose: 25 mg Simvastatin (Zocor) 20 mg PO BEDTIME [facility] Last Admin: 02/03/17 21:11 Dose: 20 mg Thiamine HCl (Vitamin B-1) 100 mg PO DAILY [facility] Last Admin: 02/04/17 08:04 Dose: 100 mg Topiramate (Topamax) 25 mg PO BEDTIME [facility] Last Admin: 02/03/17 21:09 Dose: 25 mg Topiramate (Topamax) 25 mg PO BID [facility] Last Admin: 02/04/17 11:40 Dose: 25 mg Trazodone HCl (Trazodone) 200 mg PO BEDTIME [facility] Last Admin: 02/03/17 21:09 Dose: 200 mg - Exam Quality Assessment: Reports: DVT Prophylaxis General: Reports: Alert, Oriented, Cooperative, No Acute Distress HEENT: Reports: Pupils Equal, Pupils Reactive, EOMI Neck: Reports: Supple, Trachea Midline Lungs: Reports: Normal Respiratory Effort Cardiovascular: Reports: Regular Rate, Regular Rhythm GI/Abdominal Exam: Normal Bowel Sounds, Soft, Non-Tender, No Organomegaly, No Distention (Male) Exam: Deferred Rectal (Males) Exam: Deferred Back Exam: Reports: Normal Inspection Extremities: Normal Inspection Skin: Reports: Warm Neurological: Reports: No New Focal Deficit, Normal Gait, Normal Speech Psy/Mental Status: Reports: Alert, Depressed *Q Meaningful Use (DIS) - VTE *Q VTE Criteria *Q: - Stroke *Q Stroke Criteria *Q: - AMI *Q AMI Criteria *Q:
--- NOTE | 2017-02-08 13:10 | CONS ---
CONSULTING PHYSICIAN: Kali Bennett LAC DATE OF CONSULTATION: 02/03/2017 TIME: 01:03 p.m.. The patient is a 46-year-old man admitted to [facility] on 02/01/2017. An alcohol and drug consultation was requested by his medical treatment team. The patient's evaluation began at approximately 04:46 p.m. and the interview was concluded with the patient at approximately 05:46 p.m. on 02/03/2017. The patient had requested that I speak with his 2 daughters and mother and a call was placed to his daughter Kortney subsequent to the patient's evaluation on 02/03/2017. However, she did not answer the phone. No message was left. EDWIN Lemos and I spoke with the patient's mother Domi for her input as well on 02/03/2017. The patient's evaluation was composed during regular business hours on 02/05/2017 starting at approximately 12:30 p.m. and ending at approximately 01:10 p.m. SOURCE OF INFORMATION: Hospital records, patient's self report, prescription drug monitoring report, background research, and ISAIAS were signed to speak with the patient's mother and 2 daughters. HISTORY OF PRESENT ILLNESS: The patient is a 46-year-old man with past medical history of anxiety disorder, depressive disorder, PTSD, and alcohol dependence with a possible polysubstance dependence. He is a who is brought into the emergency room by EMS after his friend called the police to report that the patient was threatening to shoot himself in the head. SOCIAL HISTORY: The patient reports that he was born and raised in [place], [place], by his adoptive parents. He states that he was adopted at 6 weeks old. He tried to find his mother recently but she did not want to have anything to do with him. This continues to break his heart. He does not know his father but understands that his father of liver cirrhosis at a young age secondary to alcoholism. His biological mother suffers from heart disease and has . The patient has 1 other older brother living in [place]. However, the patient's mother reports that they no longer speak because of the patient's alcoholism. The patient graduated from [employer] in [facility] in 1987 where he was active in sports. 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 Took a break from his career and then went back from 1994 to 1999. He was in 1989 at the age of 19. However, because of his drinking, his him in 1999. They had 2 daughters and his took them and moved away. The patient then went AWOL from the to go after them and was subsequently dishonorably discharged from the in 1999. He continues to have a relationship with his 2 daughters. However, his oldest daughter is upset with him because he started to drink again. He has been working at [employer] during the past year since September and living in a camper in [facility]. However he was recently laid off and he considers himself homeless as it is too cold to live in his camper. His family is not extending a residence to him because of his drinking. The patient reports that while in the he suffered a traumatic brain injury and continues to suffer from this medical condition. SUBSTANCE ABUSE HISTORY: The patient reports that he started drinking at 11 years old and while in higiino high in high school, he would sneak out and drink. He states he could drink more than the rest of his friends and a typical amount would be 6-10 beers or until intoxication. When he went to the service, he drank 2-3 times a week drinking from 5 o'clock in the afternoon until 2-3 in the morning. On the weekends, he states he could drink a 1.75 of Stevan Uribe per occasion. The patient is reporting that he continued to drink in this pattern and after his 1st divorce in 1999 he had 2 other relationships each lasting 7 years. However both relationships broke up because of his drinking as he could drink a 1.75 of whiskey or vodka on any given day and usually did During this time, he cut multiple domestic violence and assault charges. Several of which were quite serious and charged out as felonies. He states it is because of his drinking. The patient reports that in the last 15 years he has been drinking daily a liter of whiskey, has been able to work throughout the last 15 years, however sporadically. He states he gets up at 4 o'clock in the morning and will drink until he has to go to work, take a flask with him, drink on the job, get off work and drink until he passes out. He is unable to report a timeline for implement. He states that he has participated in 25-30 medical detox, outpatient treatments, or inpatient treatments. He has participated in [facility] [place] and at [place] as well as [facility] and [facility] in [place]. The last time he drank was prior to this admission. He states "I am only 46 years old and I have been drinking for 35 years." When asked why he became suicidal, he reports "I guess financially I lost a job, I am behind in my bills, I can not pay my bills and the bill collectors are calling and I have no place to live." He has had very limited periods of sobriety. The only one clearly articulated was after his treatment at the [place]. The patient experiences severe withdrawals, he reports in the past which is a catalyst to keep drinking. The patient reports he has had past drug use, but alcohol is his current issue. However, he states he injected about a 0.5 g of heroin this past Wednesday night 01/29/2017, but that this is only the 4th time since 2001 that he has ever done heroin. He states that he smokes marijuana recreationally most recently about 2 weeks ago. He reports that his drug of choice is injecting methamphetamine and that he started injecting during the 1980s, but that the last time he injected was 10 years ago. He again reiterates that alcohol is his primary drug of choice and he is admitting HARRY was a 0.30. DIAGNOSIS: The patient meets DSM 5 criteria for the following diagnosis. F10.20, alcohol use disorder, severe. F10.229, alcohol intoxication. F10.239, alcohol withdrawal without perceptual disturbance. F12.20, cannabis use disorder, severe, rule out. F11.20, opioid use disorder, rule out. 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 ASAM DIMENSIONS: Dimension 1: Score 2. The patient has some difficulty tolerating and coping with withdrawal discomfort, intoxication may be severe but responds to support and treatment. Dimension 2: Score 2. The patient displays full functioning with good ability to cope with physical discomfort. The patient is presenting with TBI. Dimension 3: Score 2. The patient has difficulty with impulse control and lacks coping skills. He has thoughts of suicide. However he has not followed through with an attempt. He appears to have difficulty functioning in significant life areas and may have a presence of a mental health disorder. Dimension 4: Score 3. The patient displays inconsistent compliance, minimal awareness of either his addiction or mental health disorder and is cooperating primarily. It appears to have a place to live. Dimension 5: Score 3. The patient has little recognition and understanding of relapse and recidivism issues and displays a high vulnerability for further substance use or mental health problems. Dimension 6. Score 4. The patient is not engaged in structured meaningful activity. He [place] been living in [place], however it is cold, so he is going to be homeless and his family offers very little social support and his friends are substance users themselves. ASSESSMENT SUMMARY: The patient appears to be a man suffering from a serious biological predisposition to alcoholism. He appears to be a gamma alcoholic in late stage III and may also suffer from polysubstance dependence. However further assessment is needed. His lab work out of the ER is negative for all substances other than alcohol. His HARRY upon admittance is 0.30. It appears this patient has exhausted professional attempts to assist him in recovery as he reports 25- 30 substance abuse treatment programs in the past. The patient's greatest fear is that his life is going as his biological father's did dying of liver cirrhosis at a very young age. In addition to this evaluation, we had a counseling session about his fears, anxiety, reasons for his PTSD and his primary coping mechanism alcohol. The patient is requesting that he can be [facility] [place], [place], as he has been there in the past and felt comfortable. His medical history records are at this facility and he reports that he was able to be sober while participating in their program. Dr. Luis and EDWIN Lemos, were consulted regarding the safe discharge plan to the [facility] [place]. RECOMMENDATIONS: The patient meets ASAM criteria for level 3.7, medically managed inpatient treatment. A safe discharge plan will be coordinated by EDWIN Lemos, for transport to the [facility] [place], per patient request. MMODAL /[id number]
== END 2017-02-04 15:30 | DRG 897 ==
LOC: JD.ED 14:38 → EEVIPCON 14:38 → JD.ICU 02-02 10:16 → EEVIPCON 02-02 10:16
PROVIDERS: ADMIT Hospitalist; ATTEND Hospitalist
PROC: HZ2ZZZZ Detoxification Services for Substance Abuse Treatment (ICD-10-PCS; principal; 2017-02-02)
DX: F10.230 Alcohol dependence with withdrawal, uncomplicated (principal); R45.851 Suicidal ideations; F32.9 Major depressive disorder, single episode, unspecified; F43.10 Post-traumatic stress disorder, unspecified; Z91.19 Patient's noncompliance with other medical treatment and regimen; H54.7 Unspecified visual loss; I10 Essential (primary) hypertension; E78.00 Pure hypercholesterolemia, unspecified; K21.9 Gastro-esophageal reflux disease without esophagitis; F12.90 Cannabis use, unspecified, uncomplicated; F15.90 Other stimulant use, unspecified, uncomplicated; F29 Unspecified psychosis not due to a substance or known physiological condition; F41.1 Generalized anxiety disorder; R73.03 Prediabetes; Y90.1 Blood alcohol level of 20-39 mg/100 ml
CPT/HCPCS: 36415; 80048; 80053; 80306; 83036; 83735; 84100; 84443; 84484; 85025; 93005; 96361; 96374; 96375; 96376; 99285; 99285-25; A9270-GY; G0480; J0360; J1200; J1650; J2060; J2405; J3475; J7030; J7040; J7042